=== PATIENT | female | born 1985 | race Two or more races ===

== ENCOUNTER 2022-02-12 03:43 | Emergency (ER) | payer MEDICAID ==
[~2022-02-12] VITALS: Ht 167.6 cm; Wt 87.5 kg
[2022-02-12 03:45] VITALS: BP 163/82
[2022-02-12] MEDS ORDERED: methylPREDNISolone SOD SUCC 125 MG/2 ML VL IM ONE (06:30)
[2022-02-12] MEDS ORDERED: PRED20TA2 PO (08:21)
[2022-02-12] MEDS ORDERED: CLINDAMYCIN 900MG IV 50 ML IV ONE (08:30)
[2022-02-12] MEDS ORDERED: cefTRIAXone 1GM/50ML D5W 50 ML IV ONE (08:30)
[2022-02-12 09:16] LABS: Albumin 3.9 g/dL (3.4-5.0); Calcium 8.7 mg/dL (8.5-10.1); Potassium 4.1 mmol/L (3.5-5.1)
[2022-02-12 09:18] LABS: Basophils # (auto) 0.1 10 ^3/uL (0-0.2); Basophils % (auto) 1.1 % (0.0-2.0); Eosinophils # (auto) 0 10 ^3/uL (0-0.8); Eosinophils % (auto) 0.6 % (0.0-7.0); Hematocrit 43.2 % (36.0-46.0); Hemoglobin 14.6 g/dL (12.2-16.2); Lymphocytes # (auto) 0.8 10 ^3/uL (0.4-5.4); Lymphocytes % (auto) 13.1 % (10.0-50.0); Mean Corpuscular Hemoglobin 29.2 pg (28.0-32.0); Mean Corpuscular Hgb Conc. 33.9 g/dL (32.0-36.0); Mean Corpuscular Volume 86.2 fL (80.0-100.0); Monocytes # (auto) 0.2 10 ^3/uL (0-1.3); Monocytes % (auto) 2.8 % (0.0-12.0); Neutrophils # (auto) 5.1 10 ^3/uL (1.6-8.6); Neutrophils % (auto) 82.4 % (37.0-80.0); Nucleated Red Blood Cells % 0.1 %; Red Blood Cells 5.01 10^6/uL (4.0-5.20); Red Cell Distribution Width 13.4 % (11.8-14.3); White Blood Cell 6.2 10^3/uL (4.4-10.8)
[2022-02-12 09:20] LABS: BUN/Creatinine Ratio 16.7; Bilirubin, Total 0.4 mg/dL (0.2-1.0); Total Protein 8.4 g/dL (6.4-8.2)
[2022-02-12] MEDS ORDERED: KETOROLAC TROMETH 30 MG/ML 1ML VIAL IV ONE (10:45)
[2022-02-12] MEDS ORDERED: methylPREDNISolone SOD SUCC 125 MG/2 ML VL IV ONE (10:45)
[2022-02-12] MEDS ORDERED: IBUP800T27 PO (11:19)
[2022-02-12] MEDS ORDERED: CEPH-509 PO (11:19)
== END 2022-02-12 11:26 | disposition home or self-care (01) ==
LOC: ER 03:53
DX: K11.20 Sialoadenitis, unspecified (principal); R59.0 Localized enlarged lymph nodes; Z79.1 Long term (current) use of non-steroidal anti-inflammatories (NSAID); Z79.899 Other long term (current) drug therapy; Z88.1 Allergy status to other antibiotic agents; Z20.822 Contact with and (suspected) exposure to COVID-19
CPT/HCPCS: 36415; 70490; 70491; 80053; 85025; 87426; 87804; 96365; 96366; 96368; 96372; 96375; 99285; J0696; J1885; J2930; J3490